=== PATIENT | female | born 1995 | race African-American/Black ===

== ENCOUNTER 2017-05-09 10:27 | Outpatient (CLI) | payer OTHER, SELFPAY ==
[2017-05-09] MEDS ORDERED: diphenhydrAMINE INJ 50MG/ML VIAL (J1200) IV ×3 (10:45)
== END 2017-05-09 17:05 | disposition home or self-care (01) ==
LOC: M LDO 10:27
DX: O99.89 Other specified diseases and conditions complicating pregnancy, childbirth and the puerperium (principal); D47.01 Cutaneous mastocytosis; R06.00 Dyspnea, unspecified; L50.9 Urticaria, unspecified; Z3A.26 26 weeks gestation of pregnancy
CPT/HCPCS: 59025

== ENCOUNTER 2017-07-28 06:49 | Outpatient (CLI) | payer OTHER ==
[2017-07-28] MEDS ORDERED: diphenhydrAMINE 25 MG CAP PO (08:15)
== END 2017-07-28 09:25 | disposition short-term general hospital (02) ==
LOC: M LDO 06:49
DX: O47.1 False labor at or after 37 completed weeks of gestation (principal); O99.810 Abnormal glucose complicating pregnancy; O99.113 Other diseases of the blood and blood-forming organs and certain disorders involving the immune mechanism complicating pregnancy, third trimester; D89.49 Other mast cell activation disorder; Z3A.38 38 weeks gestation of pregnancy
CPT/HCPCS: 59025

== ENCOUNTER 2018-04-10 17:00 | Observation (INO) | payer OTHER ==
[~2018-04-10] VITALS: Ht 165.1 cm; Wt 61.0 kg
[~2018-04-10 17:00] MED LIST: CROM100C PO; FERR325T3 PO; PRENTAB9 PO; SING10TA32 PO; ZANT150T15 PO; ZYRT10CA5 PO
[2018-04-10] MEDS ORDERED: EPINEPHrine INJ 1 MG/ML 1ML AMP IM STA (17:12)
[2018-04-10] MEDS ORDERED: MAGNESIUM SULFATE 1 GM/100 ML D5W BAG (10MG/ML) (J3475) As Ordered ONE (17:13)
[2018-04-10] MEDS ORDERED: MAG SULF 1GM/100ML (MAG RUN) 1 GM in APPROPRIATE DILUENT 1 EA IV ONE (17:15)
[2018-04-10] MEDS ORDERED: FAMOTIDINE IV BAG 20 MG in APPROPRIATE DILUENT 1 EA IV ONE (17:15)
[2018-04-10] MEDS ORDERED: NS 1,000 ML IV ONE (17:15)
[2018-04-10] MEDS: ALBUTEROL SULFATE 2.5 MG/0.5 ML INH NEB SOLN INH SCH ×3 (17:22→17:31)
[2018-04-10 17:30] LABS: BASO % 0.3 % (0.0-1.0); EOS # 0.1 10^3/uL (0.0-0.50); EOS % 2.1 % (0.0-3.0); HEMATOCRIT 42.9 % (36.0-47.0); LYMPH % 53.1 % (24.0-44.0); MEAN CORPUSCULAR HEMOGLOBIN 29.7 pg (27.0-33.0); MEAN CORPUSCULAR HGB CONC 32.6 g/dl (32.0-36.5); MEAN CORPUSCULAR VOLUME 90.9 fl (80.0-96.0); MONO # 0.3 10^3/uL (0.0-0.8); MONO % 5.2 % (0.0-5.0); NEUTROPHILS # 2.2 10^3/uL (1.8-7.7); NEUTROPHILS % 39.1 % (36.0-66.0); PLATELET COUNT, AUTOMATED 274 10^3/uL (150-450); RED BLOOD COUNT 4.72 10^6/uL (4.00-5.40); WHITE BLOOD COUNT 5.7 10^3/uL (4.0-10.0)
[2018-04-10 17:31] LABS: ABG BASE EXCESS 0.6 (-2.0-2.0); ABG HCO3 20.8 MEQ/L (22.0-26.0); ABG O2 SATURATION 98.9 % (95.0-99.0); ABG PARTIAL PRESSURE CO2 22.7 mmHg (35.0-45.0); ABG PARTIAL PRESSURE O2 123.4 mmHg (75.0-100.0); ABG STANDARD HCO3 25.1 MEQ/L (22.0-26.0); ABG TOTAL CO2 21.5 MEQ/L (22.0-29.0)
[2018-04-10 17:51] LABS: ALT/SGPT 17 U/L (12-78); BILIRUBIN,DIRECT < 0.1 MG/DL (0.0-0.2); BILIRUBIN,TOTAL 0.3 MG/DL (0.2-1.0); BLOOD UREA NITROGEN 12 MG/DL (7-18); C REACTIVE PROTEIN QUANTITATIV < 0.30 MG/DL (0.00-0.30); CALCIUM LEVEL 9.3 MG/DL (8.5-10.1); CARBON DIOXIDE LEVEL 21 MEQ/L (21-32); CHLORIDE LEVEL 109 MEQ/L (98-107); CREATININE FOR GFR 0.95 MG/DL (0.55-1.30); GLOMERULAR FILTRATION RATE > 60.0 (>60); GLUCOSE, FASTING 88 MG/DL (70-100); POTASSIUM SERUM 3.8 MEQ/L (3.5-5.1); SODIUM LEVEL 142 MEQ/L (136-145); TOTAL PROTEIN 7.2 GM/DL (6.4-8.2)
--- NOTE | 2018-04-10 17:54 | REP ---
Chest one-view HISTORY: Cough Comparison: None The lungs are clear. The heart is normal in size. The pulmonary vasculature is normal in appearance. Impression: No acute disease. Electronically Signed by Sancho Addison MD 04/10/2018 05:45 P
[2018-04-10] MEDS ORDERED: dexameTHASONE 20 MG/5 ML VIAL (J1100) IV ONE (18:00)
[2018-04-10 18:03] LABS: HCG, SERUM QUALITATIVE NEGATIVE (NEGATIVE)
[2018-04-10] MEDS: diphenhydrAMINE INJ 50MG/ML VIAL (J1200) IV SCH (21:40)
[2018-04-10 21:45] VITALS: BP 97/63
--- NOTE | 2018-04-10 21:48 | HPE ---
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 She immediately gave herself an epinephrine (epi) injection until emergency medical services (EMS) arrived. When EMS arrived, they gave her intravenous (IV) Benadryl, which says it helped her a bit. When she got to the ER where again her eyes and face were becoming more swollen, the ER attending gave epi once, followed by IV Decadron 20 mg, as well as IV Pepcid and magnesium. The patient was doing better, but then again had problems breathing, so the second epi was given by the ER attending. By the time I saw the patient, her anaphylaxis has completely reversed. She feels back to normal and has said that this has happened to her before. She will be admitted for 24-hour observation in the intensive care unit (ICU). PAST MEDICAL HISTORY: Mast cell degranulation. PAST SURGICAL HISTORY: No past surgical history. ALLERGIES: She has no known drug allergies. FAMILY HISTORY: Noncontributory. SOCIAL HISTORY: The patient denies tobacco, alcohol, or illicit drugs. MEDICATIONS: She takes at home are as follows: - cetirizine 10 mg orally daily - Cromolyn sodium 100 mg orally daily - montelukast 10 mg orally daily REVIEW OF SYSTEMS: Negative in all ten major systems except what is mentioned in the history of the present illness. Vital Signs: Blood pressure is 100/57, heart rate is 104, regular, respiratory rate 18, temperature is 98.2, oxygen saturation is 100% on room air. Head is atraumatic, normocephalic. Neck supple. No jugular venous distention (JVD). There is no stridor. Lungs are clear to auscultation. S1, S2 audible, No murmurs appreciated. Abdomen: Soft, positive bowel sounds. No pedal edema. Skin: Intact. Neurologic Examination: Patient is awake, alert, oriented times three. LABORATORY: WBC 5.7, hemoglobin is 14, hematocrit is 42.9, platelets are 274,000. Sodium 142, potassium 3.8, chloride 109, CO2 21, BUN 12, creatinine is 0.95, fasting glucose is 88. HCG qualitative is negative. C-reactive protein is less than 0.30. IMPRESSION: 1. Anaphylaxis. PLAN: Patient is to be admitted to the ICU on observation for 24 hours. I am going to give her IV Benadryl 50 mg every 12 hours and will observe overnight. Will continue following her care in the ICU.
[2018-04-10] MEDS: raNITIdine SYRUP 150 MG/10 ML UDC PO SCH (22:01)
[2018-04-11] VITALS: BP 105/58
[2018-04-11 02:00] VITALS: BP 95/53
[2018-04-11 04:00] VITALS: BP 97/52
[2018-04-11 08:00] VITALS: BP 112/58
[2018-04-11] MEDS ORDERED: EPIP0.3I2 IM (08:04)
[2018-04-11] MEDS ORDERED: FAMO20TA PO (08:04)
[2018-04-11] MEDS: raNITIdine SYRUP 150 MG/10 ML UDC PO SCH (08:46)
[2018-04-11] MEDS: diphenhydrAMINE INJ 50MG/ML VIAL (J1200) IV SCH (08:47)
[2018-04-11] MEDS ORDERED: MONTELUKAST 10 MG TAB PO SCH (09:00)
[2018-04-11] MEDS ORDERED: CETIRIZINE (ZyrTEC) 10 MG TAB PO SCH (09:00)
--- NOTE | 2018-04-11 12:18 | IPNPDOC ---
Subjective Date Seen The patient was seen on 04/11/18. Subjective Chief Complaint/HPI Shortness of breath , anaphylactic reaction Events since last encounter NO isues overnight , her symptoms have completely resolved and have not recurred again. Objective Physical Examination General Exam: Positive: Alert, Cooperative, No Acute Distress Eye Exam: Positive: PERRLA, Conjunctiva & lids normal, EOMI; Negative: Sclera icteric ENT Exam: Positive: Atraumatic, Mucous membr. moist/pink, Pharynx Normal Neck Exam: Positive: Supple; Negative: JVD, thyromegaly Chest Exam: Positive: Clear to auscultation, Normal air movement Heart Exam: Positive: Rate Normal, Regular Rhythm, Normal S1, Normal S2; Negative: Murmurs, Rubs Telemetry: Positive: No significant arrhythmia Abdomen Exam: Positive: Normal bowel sounds, Soft; Negative: Tenderness, Hepatospenomegaly Extremity Exam: Positive: Normal pulses; Negative: Clubbing, Cyanosis, Edema Skin Exam: Positive: Nl turgor and temperature; Negative: Rash, Breakdown Neuro Exam: Positive: Normal Gait, Normal Speech, Cranial Nerves 3-12 NL, Reflexes 2+ Assessment /Plan Assessment 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 She immediately gave herself an epinephrine (epi) injection until emergency medical services (EMS) arrived. When EMS arrived, they gave her intravenous (IV) Benadryl, which says it helped her a bit. When she got to the ER where again her eyes and face were becoming more swollen, the ER attending gave epi once, followed by IV Decadron 20 mg, as well as IV Pepcid and magnesium. The patient was doing better, but then again had problems breathing, so the second epi was given by the ER attending.This resolved by anaphylaxis attack. She was admitted for 24-hour observation in the intensive care unit (ICU). 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 She is new to this area. will continue with home meds She was given prescription for epipen also to continue famotidine for 5 days. Adviced to follow up with radiological technologist as per out pateint schedule. Disposition: Discharged home. Plan/VTE VTE Prophylaxis Ordered?: Yes VS, I&O, 24H, Fishbone Vital Signs/I&O Vital Signs Date Time Temp Pulse Resp B/P (MAP) Pulse Ox O2 Delivery O2 Flow Rate FiO2 04/11/18 08:00 98.8 73 18 112/58 (76) 100 Room Air I&O- Last 24 Hours up to 6 AM 04/11/18 05:59 Intake Total 340 ml Balance 340 ml Laboratory Data 24H LABS Laboratory Tests 2 04/10/18 17:18: Immature Granulocyte % (Auto) 0.2, White Blood Count 5.7, Red Blood Count 4.72, Hemoglobin 14.0, Hematocrit 42.9, Mean Corpuscular Volume 90.9, Mean Corpuscular Hemoglobin 29.7, Mean Corpuscular Hemoglobin Concent 32.6, Red Cell Distribution Width 11.8, Platelet Count 274, Neutrophils (%) (Auto) 39.1, Lymphocytes (%) (Au to) 53.1H, Monocytes (%) (Auto) 5.2H, Eosinophils (%) (Auto) 2.1, Basophils (%) (Auto) 0.3, Neutrophils # (Auto) 2.2, Lymphocytes # (Auto) 3.0, Monocytes # (Auto) 0.3, Eosinophils # (Auto) 0.1, Basophils # (Auto) 0.0, Nucleated Red Blood Cells % (auto) 0.0, Blood Gas Bicarbonate Standard 25.1, Arterial Blood pH 7.580H, Arterial Blood Partial Pressure CO2 22.7L, Arterial Blood Partial Pressure O2 123.4H, Arterial Blood Total CO2 21.5L, Arterial Blood HCO3 20.8L, Arterial Blood Base Excess 0.6, Arterial Blood Oxygen Saturation 98.9, Anion Gap 12, Glomerular Filtration Rate > 60.0, Calcium Level 9.3, Aspartate Amino Transf (AST/SGOT) 16, Alanine Aminotransferase (ALT/SGPT) 17, Alkaline Phosphatase 69, Total Bilirubin 0.3, Direct Bilirubin < 0.1, C-Reactive Protein, Quantitative < 0.30, Total Protein 7.2, Albumin 4.0, Albumin/Globulin Ratio 1.25, Human Chorionic Gonadotropin, Qual NEGATIVE CBC/BMP Laboratory Tests 04/10/18 17:18 Red Blood Count 4.72, Mean Corpuscular Volume 90.9, Mean Corpuscular Hemoglobin 29.7, Mean Corpuscular Hemoglobin Concent 32.6, Red Cell Distribution Width 11.8, Neutrophils (%) (Auto) 39.1, Lymphocytes (%) (Auto) 53.1 H, Monocytes (%) (Auto) 5.2 H, Eosinophils (%) (Auto) 2.1, Basophils (%) (Auto) 0.3, Neutrophils # (Auto) 2.2, Lymphocytes # (Auto) 3.0, Monocytes # (Auto) 0.3, Eosinophils # (Auto) 0.1, Basophils # (Auto) 0.0 KRYSTIN ANTOINE MD Apr 11, 2018 12:18
== END 2018-04-11 10:54 | disposition home or self-care (01) ==
LOC: M ED 17:00 → M ED INP 20:38 → M ICU 21:29
PROVIDERS: ADMIT Internal Medicine; ATTEND Hospitalist
DX: T78.2XXA Anaphylactic shock, unspecified, initial encounter (principal); D89.40 Mast cell activation, unspecified; Z79.899 Other long term (current) drug therapy
CPT/HCPCS: 36415; 36600; 71045; 80048; 80076; 82803; 84703; 85025; 86140; 93041; 94640; 96372; 96374; 96375; 96376; 99285; J1100; J1200; J3475